=== PATIENT | female | born 1960 | race Caucasian/White ===

== ENCOUNTER 2019-12-01 12:55 | Emergency (ER) | payer BC ==
[2019-12-01] MEDS ORDERED: Bacitracin Oint 1 GM U/D Packet TOP ONE (13:28)
--- NOTE | 2019-12-01 13:43 | EDM.PDOC ---
ED HPI GENERAL MEDICAL PROBLEM - General Chief Complaint: Skin Complaint Stated Complaint: FISH HOOK IN R EAR Time Seen by Provider: 12/01/19 13:12 Source of Information: Reports: Patient History Limitations: Reports: No Limitations - History of Present Illness INITIAL COMMENTS - FREE TEXT/NARRATIVE: 59 yo female presents with fish hook in her right ear. up to date on tetanus Right Ear Pain Score (Numeric/FACES): 5 - Related Data Allergies Allergy/AdvReac Type Severity Reaction Status Date / Time celecoxib [From Celebrex] Allergy Hives Verified 12/01/19 13:10 morphine Allergy Headache Verified 12/01/19 13:10 propoxyphene [From Darvon] Allergy Rash Verified 12/01/19 13:10 Home Meds: Home Meds Cetirizine [ZyrTEC] 10 mg PO DAILY 12/01/19 [History] Fluticasone Propionate [Flonase Allergy Relief] 1 dose TOP BID 12/01/19 [History] Nitrofurantoin Monohyd/M-Cryst [Macrobid 100 mg Capsule] 100 mg PO BEDTIME 12/01/19 [History] diphenhydrAMINE [Benadryl] 25 mg PO BEDTIME PRN 12/01/19 [History] Past Medical History HEENT History: Reports: Impaired Vision Genitourinary History: Reports: UTI, Recurrent 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: , Spontaneous Musculoskeletal History: Reports: Fracture Other Musculoskeletal History: fingers Neurological History: Reports: Concussion - Infectious Disease History Infectious Disease History: Reports: Chicken Pox, Measles, Mumps - Past Surgical History HEENT Surgical History: Reports: Adenoidectomy, Tonsillectomy Social & Family History - Tobacco Use Smoking Status *Q: Never Smoker Second Hand Smoke Exposure: No - Caffeine Use Caffeine Use: Reports: None - Alcohol Use Days Per Week of Alcohol Use: 1 Number of Drinks Per Day: 1 Total Drinks Per Week: 1 - Recreational Drug Use Recreational Drug Use: No ED ROS GENERAL - Review of Systems Review Of Systems: See Below Constitutional: Denies: Fever, Chills, Fatigue Respiratory: Denies: Shortness of Breath, Wheezing Cardiovascular: Denies: Chest Pain ED EXAM, SKIN/RASH Exam: See Below Text/Narrative:: exam limited to right ear Exam Limited By: No Limitations General Appearance: Alert, WD/WN, No Apparent Distress Skin: Other (fish hook in skin of posterior right ear) Course - Vital Signs Last Recorded V/S: Last Vital Signs Temp 36.1 C 12/01/19 13:20 Pulse 74 12/01/19 13:20 Resp 14 12/01/19 13:20 BP 146/94 H 12/01/19 13:20 Pulse Ox 98 12/01/19 13:20 - Orders/Labs/Meds Meds: Medications Discontinued Medications Generic Name Dose Route Start Last Admin Trade Name Isabel PRN Reason Stop Dose Admin Bacitracin 1 dose 12/01/19 13:28 12/01/19 13:43 Bacitracin Oint 1 Gm TOP 12/01/19 13:29 1 dose ONETIME ONE Administration Lidocaine HCl 5 ml 12/01/19 13:27 12/01/19 13:43 Xylocaine-Mpf 1% INJECT 12/01/19 13:28 5 ml ONETIME ONE Administration - Re-Assessments/Exams Free Text/Narrative Re-Assessment/Exam: 12/01/19 13:45 procedure: 1% lidocaine infiltrated into area surrounding hook. hook removed with pressure counter pressure without difficulty Departure - Departure Time of Disposition: 13:42 Disposition: Home, Self-Care 01 Condition: Good Clinical Impression: Fish hook injury of scalp Qualifiers: Encounter type: initial encounter Qualified Code(s): S09.90XA - Unspecified injury of head, initial encounter - Discharge Information *PRESCRIPTION DRUG MONITORING PROGRAM REVIEWED*: Not Applicable *COPY OF PRESCRIPTION DRUG MONITORING REPORT IN PATIENT BETO: Not Applicable Instructions: Puncture Wound, [id number] Referrals: PCP,None [Primary Care Provider] - Forms: ED Department Discharge Additional Instructions: wash with warm soapy water ice for swelling control Sepsis Event Note (ED) - Evaluation Sepsis Screening Result: No Definite Risk - Focused Exam Vital Signs: Vital Signs Temp Pulse Resp BP Pulse Ox 12/01/19 13:20 36.1 C 74 14 146/94 H 98 12/01/19 13:06 36.1 C 74 14 146/94 H 98
== END 2019-12-01 13:46 | disposition home or self-care (01) ==
LOC: JP.ED 12:55
DX: S00.05XA Superficial foreign body of scalp, initial encounter (principal); Z88.5 Allergy status to narcotic agent; Z88.8 Allergy status to other drugs, medicaments and biological substances; Z88.1 Allergy status to other antibiotic agents; Z79.899 Other long term (current) drug therapy; W45.8XXA Other foreign body or object entering through skin, initial encounter
CPT/HCPCS: 99283; J2001